=== PATIENT | male | born 1975 | race Caucasian/White ===

== ENCOUNTER 2017-10-30 17:53 | Emergency (ER) | payer OTHER ==
[2017-10-30 19:01] VITALS: BP 125/44; PULSE 69; RESP 18; TEMP 99.1; O2SAT 98
[2017-10-30] MEDS ORDERED: ROBA750T PO (19:58)
[2017-10-30] MEDS ORDERED: IBUP1TAB7 PO (19:58)
[2017-10-30] MEDS ORDERED: KETOROLAC TROMETHAMINE 60 MG/2 ML (IM) VIAL IM ONE (20:00)
[2017-10-30] MEDS ORDERED: ORPHENADRINE INJ 60 MG/2 ML AMP IM ONE (20:00)
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
== END 2017-10-30 20:45 | disposition home or self-care (01) ==
LOC: NEPK 17:53
DX: S16.1XXA Strain of muscle, fascia and tendon at neck level, initial encounter (principal); S39.012A Strain of muscle, fascia and tendon of lower back, initial encounter; F12.90 Cannabis use, unspecified, uncomplicated; V43.52XA Car driver injured in collision with other type car in traffic accident, initial encounter
CPT/HCPCS: 72100; 72170; 96372; 99284; J1885; J2360